=== PATIENT | female | born 1930 | race Caucasian/White ===

== ENCOUNTER → 2017-03-10 | Outpatient (CLI) | payer MEDICARE, OTHER ==
[~2017-03-10] MED LIST: AMI25 PO; AMIT1TAB PO; CYCL10TA29 PO; DON PO; DULO30CA35 PO; ESTR42.5 TOP; FLUOD OP; LEVO88TA42 PO; LOR5/325 PO; NITR-1 PO; ONDA4TAB97 PO; OXYC-865 PO; SUVO5TAB PO; THYROID MEDICATION; TOLT1TAB PO
[2017-03-10 15:22] LABS: PLATELET COUNT, AUTOMATED 235 K/uL (150-450)
== END ==
LOC: LAB 14:46
PROVIDERS: ATTEND Family Medicine
DX: I10 Essential (primary) hypertension (principal); F43.9 Reaction to severe stress, unspecified; R52 Pain, unspecified
CPT/HCPCS: 36415; 82040; 82247; 82310; 82374; 82435; 82565; 82947; 84075; 84132; 84155; 84295; 84450; 84460; 84520; 85025

== ENCOUNTER → 2017-07-20 | Outpatient (CLI) | payer MEDICARE, OTHER ==
[~2017-07-20] MED LIST changes: +ASPI-1471 PO; +IPRA15SP7 NS; +IPRN ENA; +LEVO88TA45 PO
--- NOTE | 2017-07-20 15:35 | RADIOLOGY IMAGING REPORT ---
FACILITY: [facility] - [place] PATIENT NAME: Veronika Paz : 1930 MR: [id number] V: [id number] EXAM DATE: ORDERING PHYSICIAN: ASTER RAIN TECHNOLOGIST: Location: [facility] Patient: Veronika Paz : 1930 Visit/Account:[id number] Date of Sevice: 07/20/2017 CAROTID HISTORY: TIAs, blurry vision COMPARISON: None. FINDINGS: Grayscale, duplex and color Doppler interrogation of the extracranial carotid and vertebral arteries was performed bilateral. On the right, peak systolic velocities within the common and internal carotid arteries are 87 and 113 cm/sec respectively. Small amount of plaque identified in the proximal right ECA. Antegrade flow w ithin the common, internal and external carotid arteries as well as vertebral artery. ICA/CCA ratio 1 .3. On the left, peak systolic velocities within the common and internal carotid arteries are 77 and 131 cm/sec respectively. Small amount of plaque identified the left carotid bulb. Antegrade flow within the common, internal and external carotid arteries as well as vertebral artery. ICA/CCA ratio 2.3. IMPRESSION: A small amount of plaque is identified the left carotid bulb although the peak systolic velocity in l eft ICA is slightly elevated at 131 cm/s in the ICA/ CCA ratio is elevated at 2.26. These findings a re consistent with a 50-69% category stenosis. No hemodynamically significant lesions identified on the right Velocity criteria are extrapolated from diameter data as defined by the Society of Radiologists in Ul trasound Consensus Conference Radiology 2003; 229;340-346 Report Dictated By: Rema Gupta MD at 07/20/2017 3:30 PM Report E-Signed By: Rema Gupta MD at 07/20/2017 3:32 PM WSN:[email or web address]
== END ==
LOC: US 01:18
PROVIDERS: ATTEND Technician/Technologist Ophthalmic
DX: I65.22 Occlusion and stenosis of left carotid artery (principal)
CPT/HCPCS: 93880

== ENCOUNTER → 2017-09-16 | Outpatient (CLI) | payer MEDICARE, OTHER ==
[~2017-09-16] MED LIST changes: +DULO30CA6 PO
[2017-09-16 11:16] LABS: PLATELET COUNT, AUTOMATED 254 K/uL (150-450)
== END ==
LOC: LAB 10:58
PROVIDERS: ATTEND Family Medicine
DX: R10.9 Unspecified abdominal pain (principal); K59.00 Constipation, unspecified; E03.9 Hypothyroidism, unspecified
CPT/HCPCS: 36415; 82040; 82247; 82310; 82374; 82435; 82565; 82947; 84075; 84132; 84155; 84295; 84443; 84450; 84460; 84520; 85025

== ENCOUNTER → 2017-09-23 | Outpatient (CLI) | payer MEDICARE, OTHER ==
[~2017-09-23] MED LIST changes: +LEVO75TA73 PO
--- NOTE | 2017-09-23 14:30 | RADIOLOGY IMAGING REPORT ---
FACILITY: [facility] PATIENT NAME: Veronika Paz : 1930 MR: [id number] V: [id number] EXAM DATE: ORDERING PHYSICIAN: BETH JUNE TECHNOLOGIST: [place] [facility] [place]ika [place] : 1930 Visit/Account:[id number] Date of Sevice: 09/23/2017 KUB SINGLE VIEW ABDOMEN HISTORY: Constipation Additional history: None COMPARISON: 12/13/2013 abdominal radiograph FINDINGS: Despite reported history there is no evidence of colonic fecal retention. Normal. There is a very subtle radiodensity projecting over the right renal shadow raising suspicion for right-sided nephrolithiasis. The right renal shadows relatively small suggesting at least mild atrophy. The left renal shadow is obscured by overlying bowel gas. Multilevel degenerative disc disease is seen through the lumbar spine. IMPRESSION: No evidence of colonic fecal retention. Normal bowel gas pattern. Possible right-sided nephrolithiasis and mild right renal atrophy. Report Dictated By: Bobby Rosario MD at 09/23/2017 2:24 PM Report E-Signed By: Bobby Rosario MD at 09/23/2017 2:27 PM WSN:[id number]
--- NOTE | 2017-09-24 00:39 | RADIOLOGY IMAGING REPORT ---
[place] [facility] [place] NAME: Veronika Paz : 1930 MR: [id number] V: [id number] EXAM DATE: ORDERING PHYSICIAN: BETH JUNE TECHNOLOGIST: Location: [facility] [place] Patient: Veronika Paz : 1930 Visit/Account:[id number] Date of Sevice: 09/23/2017 Ultrasound of the left groin: Indication: Recent onset palpable abnormality in the left groin. Technique: Longitudinal and transverse imaging was performed at the area of interest, before and afte r Valsalva maneuver. Comparison: None. Findings: There is no evidence of mass, lymph node enlargement, or fluid collection. There are no sig ns of hernia. The visualized vascular structures are unremarkable. Impression: Unremarkable study. Report Dictated By: Kimani Gautam MD at 09/24/2017 12:32 AM Report E-Signed By: Kimani Gautam MD at 09/24/2017 12:36 AM WSN:[id number]
== END ==
LOC: US 00:26
PROVIDERS: ATTEND Family Medicine
DX: M51.36 Other intervertebral disc degeneration, lumbar region (principal)
CPT/HCPCS: 74018; 76705

== ENCOUNTER → 2017-09-29 | Outpatient (CLI) | payer MEDICARE, OTHER ==
--- NOTE | 2017-09-29 14:43 | RADIOLOGY IMAGING REPORT ---
FACILITY: [facility] PATIENT NAME: Veronika Paz : 1930 MR: [id number] V: [id number] EXAM DATE: ORDERING PHYSICIAN: BETH JUNE TECHNOLOGIST: Location: [facility] Patient: Veronika Paz : 1930 Visit/Account:[id number] Date of Sevice: 09/29/2017 ABDOMEN/PELVIS W/O CONTRAST HISTORY: Abdomen pain TECHNIQUE: Axial images acquired through the abdomen/pelvis. Coronal and sagittal reformatting also performed. No IV contrast administered. Dose Lowering Technique One of the following dose optimization techniques was utilized in the performance of this exam: Autom ated exposure control; adjustment of the mA and/or kV according to the patient's size; or use of an i terative reconstruction technique. Specific details can be referenced in the facility's radiology C T exam operational policy. COMPARISON: None. FINDINGS: Visualized lung bases: Mild linear stranding the lung bases likely secondary to scarring. There are pleural-based calcifications seen along the inferior left thorax to lesser extent inferior right tho rax Hepatobiliary: There is mild distention of the gallbladder although no evidence of biliary ductal di latation. Spleen: Negative. Adrenals: Negative. Pancreas: There is diffuse fatty replacement of the head the pancreas Kidneys ureters and bladder: There is no demonstration of urolithiasis, hydronephrosis or hydroureter Genitalia: Hysterectomy GI: There is irregularity and stranding in the perirectal fat possibly related to an infectious/infl ammatory process although clinical correlation needed. There is diverticulosis of the sigmoid colon although no CT evidence of acute diverticulitis. There is a loop nonobstructed sigmoid colon located in a large left inguinal hernia . Vessels/spaces/nodes: There are mild vascular calcifications in the abdominal aorta. Collateral ves sels are identified in the left-sided abdomen Bones/soft tissues: As mentioned above there is a large left inguinal hernia containing fat and nono bstructed loop of sigmoid colon. There is also a right-sided inguinal hernia containing fat. There are moderate spondylotic changes of the lumbar spine Additional findings: None pertinent. IMPRESSION: There is a large left internal hernia containing fat and a nonobstructed loop of sigmoid colon. Ther e is also a smaller right-sided inguinal hernia containing fat There is irregularity and stranding in the perirectal fat possibly related to an infectious/inflammat ory process although clinical correlation is needed. Diverticulosis left-sided colon although no CT evidence of acute diverticulitis. Diffuse fatty replacement of the head of the pancreas Mild distention of the gallbladder although no evidence of biliary ductal dilatation. This could be related to a fasting state.. Correlation with meal history suggested Pleural-based calcifications noted along the inferior hemithoraces bilaterally, left greater than rig ht. This raises the question of possible asbestos exposure Report Dictated By: Rema Gupta MD at 09/29/2017 2:25 PM Report E-Signed By: Rema Gupta MD at 09/29/2017 2:39 PM REJI:[email or web address]
== END ==
LOC: CT 06:55
PROVIDERS: ATTEND Family Medicine
DX: K45.8 Other specified abdominal hernia without obstruction or gangrene (principal); K40.90 Unilateral inguinal hernia, without obstruction or gangrene, not specified as recurrent; K57.30 Diverticulosis of large intestine without perforation or abscess without bleeding
CPT/HCPCS: 74176

== ENCOUNTER → 2017-11-02 | Outpatient (CLI) | payer MEDICARE, OTHER | LOC: LAB 13:37 | PROVIDERS: ATTEND Family Medicine | DX: E03.9 Hypothyroidism, unspecified (principal) | CPT/HCPCS: 36415; 84443 ==

== ENCOUNTER → 2017-12-23 | Outpatient (CLI) | payer MEDICARE, OTHER | LOC: LAB 08:56 | PROVIDERS: ATTEND Ophthalmology | DX: H53.8 Other visual disturbances (principal) | CPT/HCPCS: 36415; 85027; 85651; 86140 ==

== ENCOUNTER 2018-03-01 14:52 | Emergency (ER) | payer MEDICARE, OTHER ==
--- NOTE | 2018-03-01 15:29 | RADIOLOGY IMAGING REPORT ---
FACILITY: [facility] PATIENT NAME: Veronika Paz : 1930 MR: [id number] V: [id number] EXAM DATE: ORDERING PHYSICIAN: ROMINA JIMENEZ TECHNOLOGIST: Location: [facility] - [place], [place] Patient: Veronika Paz : 1930 Visit/Account:[id number] Date of Sevice: 03/01/2018 EXAMINATION: Head CT without intravenous contrast HISTORY: Headache. Dysarthria. Stroke alert. COMPARISON: 04/18/2016. TECHNIQUE: Contiguous axial images were obtained from the skull base to the vertex without intraven ous contrast. Sagittal and coronal reformatted images are also submitted. One of the following dose optimization techniques was utilized in the performance of this exam: Autom ated exposure control; adjustment of the mA and/or kV according to the patient's size; or use of an i terative reconstruction technique. Specific details can be referenced in the facility's radiology C T exam operational policy. FINDINGS: Brain and intracranial structures: Mild cerebral volume loss with corresponding sulcal and ventricul ar prominence. The basal cisterns are patent. Mild patchy hypoattenuation in the white matter. No midline shift, acute hemorrhage, mass, or evidence of acute infarct. Vessels: Mild calcified plaque of the carotid siphons. Calvarium / scalp: Negative. Skull base / visualized face: Negative. Visualized sinuses / orbits: Negative. IMPRESSION: No intracranial hemorrhage or evidence of acute infarct. Mild patchy hypoattenuation in the white matter, likely chronic small vessel ischemic changes. These findings were discussed with ROMINA JIMENEZ at 03/01/2018 3:23 PM. Report Dictated By: Jose Bo MD at 03/01/2018 3:19 PM Report E-Signed By: Jose Bo MD at 03/01/2018 3:25 PM WSN:[id number]
--- NOTE | 2018-03-01 15:41 | EKG ---
FACILITY: [facility] - [place] PATIENT NAME: PARAM ROGERS : [id number] MR: [id number] V: [id number] EXAM DATE: ORDERING PHYSICIAN: ROMINA JIMENEZ TECHNOLOGIST: KARIE Resendez Reason : NEURO Blood Pressure : / mmHG Vent. Rate : 077 BPM Atrial Rate : 077 BPM P-R Int : 180 ms QRS Dur : 088 ms QT Int : 380 ms P-R-T Axes : 051 -10 035 degrees QTc Int : 430 ms Sinus rhythm Left axis Poor R wave progression anteriorly Abnormal ECG Similar to previous EKGs Confirmed by STEPHANY MIDDLETON ([id number]) on 03/01/2018 10:16:41 PM Referred By: TONY Confirmed By:STEPHANY MIDDLETON
[2018-03-01 15:57] LABS: PLATELET COUNT, AUTOMATED 236 K/uL (150-450)
[2018-03-01 16:01] LABS: INR 0.97
[2018-03-01] MEDS ORDERED: GADOBENATE 529MG/1ML 15ML VIAL IVP ONE (16:13)
--- NOTE | 2018-03-01 16:50 | ER Report ---
History and Physical Time Seen By MD: 14:58 Hx. of Stated Complaint: POSSIBLE STROKE. LAST NORM WAS ON WEDNESDAY. HPI/ROS CHIEF COMPLAINT: Concerned about possible stroke HISTORY OF PRESENT ILLNESS: This is an 87 year old female. She does not feel right. She says her head does not feel right, but can't explain well. She has had weakness with walking, seeming to list to the side. She normally walks about a mile a day, but cannot even come close to doing this now. She was having difficulty with speech today, having difficulty speaking. She is here with a friend who works as a cook at the [employer] where she lives. Last known normal was last Wednesday, 4 days ago. No recent illness. Denies headache. Denies dizziness. Had difficulty hearing, with hearing aides. Wears glasses, but no acute vision changes. No shortness of breath or chest pain. No palpitations. No abdominal pain, nausea or vomiting. No change in bowels, diarrhea or blood/melena. No dysuria or hematuria. No falls. No trouble swallowing, eating or drinking. Allergies: Coded Allergies: clindamycin (Verified Allergy, Mild, 01/03/15) Home Meds Active Scripts Levothyroxine Sodium (LEVOTHYROXINE SODIUM) 75 Mcg Tablet, 1 TAB PO QDAY for 90 Days, #90 TAB 4 Refills Prov:BETH JUNE MD 11/03/17 Ipratropium [place] 0.03% Ns (IPRATROPIUM BROMIDE 0.03% NS) 21 Mcg [place], 2 SPRAYS DENZEL BID for 30 Days, #1 BOT 11 Refills Prov:TATIANA LEONE JR, MD 04/29/17 Reported Medications Aspirin (ASPIR 81) 81 Mg Tablet.dr, 1 TAB PO twice weekly, TAB 07/21/17 Discontinued Scripts Duloxetine HCl (Duloxetine HCl) 30 Mg Capsule.dr, 1 CAP PO DAILY for 90 Days, #90 CAP 4 Refills Prov:BETH JUNE MD 09/28/17 Estrogens, Conjugated (Premarin) 0.625 Mg/Gram Cream.appl, 1 KALANI TOP rare for 30 Days, #1 TUBE 1 Refill Prov:BETH JUNE MD 09/16/17 Past Medical/Surgical History TIA, Hypothyroidism, IBS, Depression. History of hysterectomy, bladder repair and colonoscopy Reviewed Nurses Notes: Yes Hx Smoking: No Smoking Status: Never Smoker Hx Substance Use Disorder: No Hx Alcohol Use: No Constitutional Vital Sign - Last 24 Hours 03/01/18 03/01/18 03/01/18 03/01/18 15:10 18:15 18:16 18:17 Temp 98.5 Pulse 80 77 81 80 Resp 18 B/P (MAP) 180/91 147/78 (101) 134/77 (96) 110/79 (89) Pulse Ox 93 O2 Delivery Room Air 03/01/18 18:30 Pulse 72 Pulse Ox 92 Physical Exam General Appearance: The patient is alert. No acute distress. Eyes: Pupils are equal, round. Reactive to light. No pallor, injection or icterus. Extraocular movements are intact. No nystagmus. Visual flores equal and full by confrontation. ENT: Mucous membranes are moist. Normal oral mucosa. Posterior oropharynx is normal. Normal nasal mucosa. Normal tympanic membranes and canals. Neck: Supple and non tender. No lymphadenopathy. Respiratory: Lungs are clear to auscultation. Cardiovascular: Regular rate and rhythm. No murmurs, gallops or rubs. Normal capillary refill. No edema. No carotid bruits. Gastrointestinal: Abdomen is soft and non tender. Nondistended. No masses or organomegaly. Normal active bowel sounds. No costovertebral angle tenderness with percussion. Neurological: Alert and oriented x3. Cranial nerve evaluation with eye exam noted above, normal facial motor and sensory function, midline tongue and symmetric palate elevation and shoulder shrug. Has some decreased sensation in the right lower leg, but this is old (several years) otherwise normal. Normal finger to nose and heel to regalado testing. Gait is unsteady, but in a strait line at this time. Skin: Warm and dry. No rashes. Musculoskeletal: Extremities are nontender. No tenderness in palpation of the cervical, thoracic and lumbar spine. DIFFERENTIAL DIAGNOSIS: After history and physical exam, differential diagnosis was considered for neurologic changes that could be stroke, TIA or stroke mimic. NIH stroke scale done by neurology via Telestroke and the nurses was 1 for the sensory disturbance in right leg. Medical Decision Making Data Points Result Diagram: 03/01/18 1536 03/01/18 1536 Laboratory Hematology Test 03/01/18 15:36 03/01/18 17:20 Red Blood Count 5.08 M/uL (4.17-5.56) Mean Corpuscular Volume 97.4 fL (80.0-96.0) Mean Corpuscular Hemoglobin 32.3 pg (26.0-33.0) Mean Corpuscular Hemoglobin Concent 33.1 g/dL (32.0-36.0) Red Cell Distribution Width 12.1 % (11.5-14.5) Mean Platelet Volume 8.0 fL (7.2-11.1) Neutrophils (%) (Auto) 38.4 % (39.4-72.5) Lymphocytes (%) (Auto) 42.3 % (17.6-49.6) Monocytes (%) (Auto) 13.4 % (4.1-12.4) Eosinophils (%) (Auto) 5.2 % (0.4-6.7) Basophils (%) (Auto) 0.7 % (0.3-1.4) Nucleated RBC Relative Count (auto) 0.1 /100WBC Neutrophils # (Auto) 2.5 K/uL (2.0-7.4) Lymphocytes # (Auto) 2.7 K/uL (1.3-3.6) Monocytes # (Auto) 0.9 K/uL (0.3-1.0) Eosinophils # (Auto) 0.3 K/uL (0.0-0.5) Basophils # (Auto) 0.0 K/uL (0.0-0.1) Nucleated RBC Absolute Count (auto) 0.00 K/uL Prothrombin Time 12.8 seconds (12.0-14.4) Prothromb Time International Ratio 0.97 Activated Partial Thromboplast Time 30 seconds (23-35) Sodium Level 139 mmol/L (137-145) Potassium Level 4.3 mmol/L (3.5-5.0) Chloride Level 106 mmol/L (98-107) Carbon Dioxide Level 28 mmol/L (22-31) Blood Urea Nitrogen 20 mg/dl (7-18) Creatinine 1.10 mg/dl (0.52-1.04) Glomerular Filtration Rate Calc 47.0 Random Glucose 94 mg/dl (75-110) Calcium Level 10.3 mg/dl (8.4-10.2) Total Bilirubin 0.4 mg/dl (0.2-1.3) Aspartate Amino Transf (AST/SGOT) 27 U/L (0-35) Alanine Aminotransferase (ALT/SGPT) 23 U/L (0-56) Alkaline Phosphatase 97 U/L (0-126) Troponin I < 0.012 ng/ml Total Protein 8.1 g/dl (6.3-8.2) Albumin 4.4 g/dl (3.5-5.0) Urine Color Yellow Urine Clarity Clear Urine pH 7.0 pH (4.8-9.5) Urine Specific [place] 1.010 Urine Protein Negative mg/dL (NEGATIVE) Urine Glucose (UA) Negative mg/dL (NEGATIVE) Urine Ketones Negative mg/dL (NEGATIVE) Urine Blood Negative (NEGATIVE) Urine Nitrite Negative (NEGATIVE) Urine Bilirubin Negative (NEGATIVE) Urine Urobilinogen Negative mg/dL (0.2-1.9) Urine Leukocyte Esterase Trace (NEGATIVE) Urine RBC None /HPF (0-2/HPF) Urine WBC 5 /HPF (0-5/HPF) Urine Squamous Epithelial Cells Few /LPF (</=FEW) Urine Bacteria Negative /HPF (NONE-FEW) Urine Mucus None /HPF (NONE-FEW) Chemistry Test 03/01/18 15:36 03/01/18 17:20 White Blood Count 6.4 k/uL (4.5-11.0) Red Blood Count 5.08 M/uL (4.17-5.56) Hemoglobin 16.4 g/dL (12.0-16.0) Hematocrit 49.5 % (34.0-47.0) Mean Corpuscular Volume 97.4 fL (80.0-96.0) Mean Corpuscular Hemoglobin 32.3 pg (26.0-33.0) Mean Corpuscular Hemoglobin Concent 33.1 g/dL (32.0-36.0) Red Cell Distribution Width 12.1 % (11.5-14.5) Platelet Count 236 K/uL (150-450) Mean Platelet Volume 8.0 fL (7.2-11.1) Neutrophils (%) (Auto) 38.4 % (39.4-72.5) Lymphocytes (%) (Auto) 42.3 % (17.6-49.6) Monocytes (%) (Auto) 13.4 % (4.1-12.4) Eosinophils (%) (Auto) 5.2 % (0.4-6.7) Basophils (%) (Auto) 0.7 % (0.3-1.4) Nucleated RBC Relative Count (auto) 0.1 /100WBC Neutrophils # (Auto) 2.5 K/uL (2.0-7.4) Lymphocytes # (Auto) 2.7 K/uL (1.3-3.6) Monocytes # (Auto) 0.9 K/uL (0.3-1.0) Eosinophils # (Auto) 0.3 K/uL (0.0-0.5) Basophils # (Auto) 0.0 K/uL (0.0-0.1) Nucleated RBC Absolute Count (auto) 0.00 K/uL Prothrombin Time 12.8 seconds (12.0-14.4) Prothromb Time International Ratio 0.97 Activated Partial Thromboplast Time 30 seconds (23-35) Glomerular Filtration Rate Calc 47.0 Calcium Level 10.3 mg/dl (8.4-10.2) Total Bilirubin 0.4 mg/dl (0.2-1.3) Aspartate Amino Transf (AST/SGOT) 27 U/L (0-35) Alanine Aminotransferase (ALT/SGPT) 23 U/L (0-56) Alkaline Phosphatase 97 U/L (0-126) Troponin I < 0.012 ng/ml Total Protein 8.1 g/dl (6.3-8.2) Albumin 4.4 g/dl (3.5-5.0) Urine Color Yellow Urine Clarity Clear Urine pH 7.0 pH (4.8-9.5) Urine Specific [place] 1.010 Urine Protein Negative mg/dL (NEGATIVE) Urine Glucose (UA) Negative mg/dL (NEGATIVE) Urine Ketones Negative mg/dL (NEGATIVE) Urine Blood Negative (NEGATIVE) Urine Nitrite Negative (NEGATIVE) Urine Bilirubin Negative (NEGATIVE) Urine Urobilinogen Negative mg/dL (0.2-1.9) Urine Leukocyte Esterase Trace (NEGATIVE) Urine RBC None /HPF (0-2/HPF) Urine WBC 5 /HPF (0-5/HPF) Urine Squamous Epithelial Cells Few /LPF (</=FEW) Urine Bacteria Negative /HPF (NONE-FEW) Urine Mucus None /HPF (NONE-FEW) Coagulation Test 03/01/18 15:36 Prothrombin Time 12.8 seconds Prothromb Time International Ratio 0.97 Activated Partial Thromboplast Time 30 seconds Urinalysis Test 03/01/18 17:20 Urine Color Yellow Urine Clarity Clear Urine pH 7.0 pH (4.8-9.5) Urine Specific [place] 1.010 Urine Protein Negative mg/dL (NEGATIVE) Urine Glucose (UA) Negative mg/dL (NEGATIVE) Urine Ketones Negative mg/dL (NEGATIVE) Urine Blood Negative (NEGATIVE) Urine Nitrite Negative (NEGATIVE) Urine Bilirubin Negative (NEGATIVE) Urine Urobilinogen Negative mg/dL (0.2-1.9) Urine Leukocyte Esterase Trace (NEGATIVE) Urine RBC None /HPF (0-2/HPF) Urine WBC 5 /HPF (0-5/HPF) Urine Squamous Epithelial Cells Few /LPF (</=FEW) Urine Bacteria Negative /HPF (NONE-FEW) Urine Mucus None /HPF (NONE-FEW) EKG/Imaging EKG Interpretation 12 lead EKG: Rhythm: normal sinus rhythm, rate 77 [place]: normal QRS: normal ST segments: normal Imaging EXAMINATION: Head CT without intravenous contrast HISTORY: Headache. Dysarthria. Stroke alert. COMPARISON: 04/18/2016. TECHNIQUE: Contiguous axial images were obtained from the skull base to the vertex without intravenous contrast. Sagittal and coronal reformatted images are also submitted. One of the following dose optimization techniques was utilized in the performance of this exam: Automated exposure control; adjustment of the mA and/or kV according to the patient's size; or use of an iterative reconstruction technique. Specific details can be referenced in the facility's radiology CT exam operational policy. FINDINGS: Brain and intracranial structures: Mild cerebral volume loss with corresponding sulcal and ventricular prominence. The basal cisterns are patent. Mild patchy hypoattenuation in the white matter. No midline shift, acute hemorrhage, mass, or evidence of acute infarct. Vessels: Mild calcified plaque of the carotid siphons. Calvarium / scalp: Negative. Skull base / visualized face: Negative. Visualized sinuses / orbits: Negative. IMPRESSION: No intracranial hemorrhage or evidence of acute infarct. Mild patchy hypoattenuation in the white matter, likely chronic small vessel ischemic changes. These findings were discussed with ROMINA JIMENEZ at 03/01/2018 3:23 PM. Report Dictated By: Jose Bo MD at 03/01/2018 3:19 PM ED Course/Re-evaluation Clinical Indication for ER IV: IV Access ED Course Initially sent to CT scan. EKG and labs obtained. Telestroke used for neurology evaluation. Outside of any window for treatment based on last known normal. MRI done with and without contrast for further evaluation. Labs unremarkable other than mild dehydration with BUN 20 and Cr. 1.10, also looks a little hemo- concentrated with elevated H/H. Negative Coagulation and Troponin. Decision to Disposition Date: Mar 01, 2018 Decision to Disposition Time: 18:03 Depart Departure Latest Vital Signs Vital Signs Date Time Temp Pulse Resp B/P (MAP) Pulse Ox O2 Delivery O2 Flow Rate FiO2 03/01/18 18:30 72 92 03/01/18 18:17 110/79 (89) 03/01/18 15:10 98.5 18 Room Air Impression: Primary Impression: Balance problem Additional Impression: Dehydration Condition: Improved Disposition: HOME OR SELF-CARE Referrals: BETH JUNE MD (PCP) Patient Instructions: Dehydration (ED) Additional Instructions: We did not find any evidence of a stroke on your workup today. You will need to keep your appointment with Dr. Dorman, Neurology for further evaluation. Increase your fluid intake. Use your 's previous walker to help prevent falls and keep your stability. Follow-up with Dr. June. Problem Qualifiers ROMINA JIMENEZ MD Mar 01, 2018 16:50
--- NOTE | 2018-03-01 17:37 | RADIOLOGY IMAGING REPORT ---
FACILITY: [facility] [place] PATIENT NAME: Veronika Paz : 1930 MR: [id number] V: [id number] EXAM DATE: ORDERING PHYSICIAN: ROMINA JIMENEZ TECHNOLOGIST: Location: [facility] - [place] Patient: Veronika Paz : 1930 Visit/Account:[id number] Date of Sevice: 03/01/2018 EXAMINATION: MRI Brain without IV contrast MRI Brain with IV contrast HISTORY: Dysarthria. COMPARISON: CT of the head from the same day. TECHNIQUE: Multi-planar, multi-sequence brain MRI was performed before and after IV gadolinium. CONTRAST: 14 mL of IV MultiHance FINDINGS: Brain and other intracranial structures: Mild cerebral volume loss with corresponding sulcal and halima tricular prominence. Mild patchy T2 hyperintense foci in the cerebral white matter. No pathologic enh ancement. No midline shift, mass, hemorrhage, or acute infarct. Calvarium / scalp: Negative. Skull base: Negative. Visualized sinuses / orbits: Negative. IMPRESSION: No acute intracranial abnormality. No acute infarct. Mild patchy T2 hyperintense foci in the white matter, likely chronic small vessel ischemic changes. Report Dictated By: Jose Bo MD at 03/01/2018 5:23 PM Report E-Signed By: Jose Bo MD at 03/01/2018 5:33 PM WSN:[id number]
[2018-03-01] MEDS ORDERED: NS(*) 0.9% 1000 ML BAG 1,000 ML IV ONE (18:00)
[2018-03-01 18:17] VITALS: BP 110/79
== END 2018-03-01 19:46 | disposition home or self-care (01) ==
LOC: ER 15:08
DX: E86.0 Dehydration (principal); R26.81 Unsteadiness on feet
CPT/HCPCS: 70450; 70553; 81001; 84484; 85025; 85610; 85730; 93005; 96360; 99284; A9577; J7030; 82040; 82247; 82310; 82374; 82435; 82565; 82947; 84075; 84132; 84155; 84295; 84450; 84460; 84520

== ENCOUNTER → 2018-05-20 | Outpatient (CLI) | payer MEDICARE, OTHER ==
[~2018-05-20] MED LIST changes: +TRAZ50TA34 PO
--- NOTE | 2018-05-20 15:56 | RADIOLOGY IMAGING REPORT ---
FACILITY: [facility] PATIENT NAME: Veronika Paz : 1930 MR: [id number] V: [id number] EXAM DATE: ORDERING PHYSICIAN: BETH JUNE TECHNOLOGIST: Location: [facility] Patient: Veronika Paz : 1930 Visit/Account:[id number] Date of Sevice: 05/20/2018 CAROTID HISTORY: Syncope COMPARISON: 03/22/2017 FINDINGS: Grayscale, duplex and color Doppler interrogation of the extracranial carotid and vertebral arteries was performed bilateral. On the right, peak systolic velocities within the common and internal carotid arteries are 80 and 138 cm/sec respectively. There is a small amount of plaque at the right carotid bulb and at the origin of the right external carotid artery. Antegrade flow within the common, internal and external caroti d arteries as well as vertebral artery. ICA/CCA ratio 1.8. On the left, peak systolic velocities within the common and internal carotid arteries are 94 and 101 cm/sec respectively. There is a small amount of plaque at the left carotid bulb and proximal left ex ternal carotid artery. Antegrade flow within the common, internal and external carotid arteries as w ell as vertebral artery. ICA/CCA ratio 1.1. IMPRESSION: There is a small amount of plaque in the carotid bulbs and proximal external carotid arteries bilater ally. There is a mildly elevated peak systolic velocity in the right ICA which would be consistent w ith a 50-69% category stenosis No hemodynamically significant lesions identified on the left at this time. Velocity criteria are extrapolated from diameter data as defined by the Society of Radiologists in Ul trasound Consensus Conference Radiology 2003; 229;340-346 Report Dictated By: Rema Gupta MD at 05/20/2018 3:49 PM Report E-Signed By: Rema Gupta MD at 05/20/2018 3:52 PM WSN:[email or web address]
== END ==
LOC: US 05-13 02:18
PROVIDERS: ATTEND Family Medicine
DX: I35.1 Nonrheumatic aortic (valve) insufficiency (principal)
CPT/HCPCS: 93306; 93880

== ENCOUNTER 2018-08-05 17:09 | Observation (INO) | payer MEDICARE, OTHER ==
[~2018-08-05] VITALS: Ht 170.2 cm; Wt 68.0 kg
[~2018-08-05 17:09] MED LIST changes: +QUET25TA30 PO; -TRAZ50TA34 PO; +TRAZ50TA52 PO
[2018-08-05 17:31] VITALS: BP 161/80
[2018-08-05] MEDS ORDERED: NS(*) 0.9% 1000 ML BAG 1,000 ML IV PRN ×2 (17:35→21:59)
[2018-08-05] MEDS ORDERED: ONDANSETRON 4 MG/2 ML VIAL IVP PRN (17:35)
[2018-08-05 18:07] LABS: PLATELET COUNT, AUTOMATED 235 K/uL (150-450)
[2018-08-05] MEDS: MORPHINE 2 MG/ML SYR IVP PRN (18:33)
[2018-08-05] MEDS ORDERED: HYDROmorphone HCL 2 MG/ML SDV IVP ONE (18:55)
[2018-08-05] MEDS ORDERED: NORMOSOL R SOLN(*) 1000 ML BAG 1,000 ML IV ONE (19:02)
[2018-08-05] MEDS ORDERED: FAMOTIDINE(*) 20MG/50ML PREMIX 50 ML IVPB ONE ×2 (19:03→19:10)
[2018-08-05 19:30] VITALS: BP 133/73
--- NOTE | 2018-08-05 19:42 | Gen Surgery History & Physical ---
History of Present Illness Chief Complaint see h&p done in clinic today History Home Meds Active Scripts Levothyroxine Sodium (LEVOTHYROXINE SODIUM) 75 Mcg Tablet, 1 TAB PO QDAY for 90 Days, #90 TAB 4 Refills Prov:BETH JUNE MD 11/03/17 Reported Medications Aspirin (ASPIR 81) 81 Mg Tablet.dr, 1 TAB PO twice weekly, TAB 07/21/17 Allergies: Coded Allergies: clindamycin (Verified Allergy, Mild, 01/03/15) Patient History: Lip cancer MOTHER, , Age:102 Stroke FATHER, , Age:86 TIAs MOTHER, , Age:102 Medical Decision Making Data Points Result Diagram: 08/05/18 1754 08/05/181753 Venous Thromboembolism Antithrombotics Is Pt On Any Antithrombotics?: No ALTON HERNANDEZ Aug 05, 2018 19:42
[2018-08-05] MEDS ORDERED: fentaNYL CITR 250 MCG/5 ML AMP ONE (19:44)
[2018-08-05] MEDS ORDERED: LIDOCAINE 2% IV 100 MG/5ML SYR ONE (19:46)
[2018-08-05] MEDS ORDERED: PROPOFOL EMUL(*) 10MG/ML 20 ML 20 ML ONE (19:49)
[2018-08-05] MEDS ORDERED: ROCURONIUM BR 10 MG/ML 5 ML SY 5 ML ONE (19:50)
[2018-08-05] MEDS ORDERED: ONDANSETRON 4 MG/2 ML VIAL ONE (20:16)
[2018-08-05] MEDS ORDERED: SUGAMMADEX SOD 200 MG/2 ML SDV ONE (20:16)
[2018-08-05] MEDS ORDERED: DEXAMETHASONE SOD 4 MG/ML VIAL ONE (20:16)
[2018-08-05] MEDS ORDERED: ceFAZolin 1 GM VIAL ONE (20:17)
[2018-08-05] MEDS ORDERED: fentaNYL CITR 100 MCG/2 ML AMP ONE (21:14)
--- NOTE | 2018-08-05 22:06 | Post Operative Progress Note ---
Post Operative Progress Note Date: Aug 05, 2018 Time: 21:59 Surgeon: dr. ayla santamaria #[id number] Supervisor Rubber Covering: none Anesthesia: gen, local dr. sandoval Pre-Op Diagnosis: incarcerated left ing hernia, right ing hernia Post-Op Diagnosis: incarcerated left ing hernia Findings: direct and fem left ing hernias Procedure(s): robotic left ing hernia repair with mesh Complications: none Estimated Blood Loss: minimal Date OP Note Dictated: Aug 05, 2018 Time OP Note Dictated: 22:01 ALTON SANTAMARIA Aug 05, 2018 22:06
[2018-08-05] MEDS ORDERED: fentaNYL CITR 100 MCG/2 ML AMP IVP ONE (22:25)
[2018-08-05 23:21] VITALS: BP 120/64
[2018-08-05 23:45] VITALS: BP 116/60
[2018-08-06] VITALS (14 sets, daily range): BP systolic 93–121; BP diastolic 45–64; Ht 170.2 cm; Wt 68.0 kg
[2018-08-06] MEDS: MORPHINE 2 MG/ML SYR IVP PRN ×2 (02:23→06:16)
--- NOTE | 2018-08-06 08:46 | General Surgery Progress Note ---
Subjective Progress Notes Subjective pain improved. marly po. Physical Exam Vital Signs Date Time Temp Pulse Resp B/P (MAP) Pulse Ox O2 Delivery O2 Flow Rate FiO2 08/06/18 07:50 97.9 61 18 106/51 (69) 95 Nasal Cannula 0.5 Intake and Output 08/06/18 07:01 Intake Total 1050 ml Output Total 1160 ml Balance -110 ml Intake IV Total 1050 ml Output Urine Total 1150 ml Estimated Blood Loss 10 ml General Appearance: No Acute Distress Cardiovascular: Other (reg rate) GI: Other (abd soft) Result Diagram: 08/05/18175308/05/181753 Assessment and Plan Problems: (1) S/P inguinal hernia repair Assessment & Plan: doing well pt lives alone and has poor balance so likely one more night in hospital diet as marly ambulate Exam Sepsis Risk: No Definite Risk ALTON HERNANDEZ Aug 06, 2018 08:46
[2018-08-06] MEDS: APAP/HYDROCODONE 325/5 TAB PO PRN ×2 (08:51→21:17)
[2018-08-06] MEDS: ENOXAPARIN 40 MG/0.4ML SYR SC SCH (08:51)
[2018-08-06] MEDS ORDERED: IV BOLUS 500 ML IVSOL IV ONE (15:50)
[2018-08-06] MEDS ORDERED: NS(*) 0.9% 250 ML BAG 250 ML ONE (16:12)
--- NOTE | 2018-08-06 17:44 | OPERATIVE REPORT 1 ---
EVENT DATE: August 05, 2018 SURGEON: Ricardo Bunch MD ANESTHESIOLOGIST: Keenan Humphrey MD ANESTHESIA: General and local. BASKET MAKER: None. PREOPERATIVE DIAGNOSES 1. Incarcerated left inguinal hernia. 2. Right inguinal hernia. POSTOPERATIVE DIAGNOSIS 1. Direct left inguinal hernia. 2. Left femoral hernia. PROCEDURE PERFORMED Robotic left inguinal hernia repair with mesh. FLUIDS IV crystalloid. ESTIMATED BLOOD LOSS Minimal. SPECIMENS None. COMPLICATIONS None. INDICATIONS This is an 88-year-old female with severe pain since this morning. She has an incarcerated left inguinal hernia. Risks and benefits of the procedure were explained, and consent was signed. DESCRIPTION OF PROCEDURE Patient was taken to the operating room and placed in the supine position. General anesthesia was administered per anesthesia team. The left inguinal hernia was reduced at this point. Patient was prepped and draped in normal sterile fashion. Local analgesia was injected in the dermis above the umbilicus. A small incision was made. The umbilical stump was grasped and elevated. I attempted to insert a Veress needle and was unsuccessful; therefore, I made a small incision after injecting local analgesia below the left costal margin and used Optiview technique to easily enter the abdomen. Pneumoperitoneum was achieved. After injecting local analgesia and under direct vision, a right upper quadrant port was placed as well as a supraumbilical port. I inspected the abdomen. There was no injury upon entry. There was no significant hernia on the right. There was a direct inguinal hernia on the left. It appeared that omentum was what was incarcerated. The 10 x 15 cm left- sided ProGrip mesh was placed as well as an absorbable V-Loc stitch. The robot was then docked. Scissors were used to create a peritoneal flap. The direct left inguinal hernia was completely reduced. There was also a small femoral defect, and this was completely reduced as well. Small amount of cursory fat that was removed from the hernia was removed the abdomen. A mesh was placed and made to lie flat. A 3-0 Vicryl stitch was used to secure the mesh to Osman ligament. An absorbable V-Loc stitch was then used to close the peritoneal flap. Hemostasis was assured. Robot was undocked. Ports were removed. Hemostasis was assured. Final port was removed after pneumoperitoneum was relieved. All skin incisions were closed with 4-0 Monocryl subcuticular stitches. More local analgesia was injected. Appropriate dressings were applied. Patient tolerated the procedure well. There were no complications. SABINO
[2018-08-07] VITALS (8 sets, daily range): BP systolic 104–138; BP diastolic 48–77
[2018-08-07] MEDS: LEVOTHYROXINE SOD 0.075 MG TAB PO SCH (06:25)
[2018-08-07] MEDS ORDERED: TRAM-420 PO (08:00)
--- NOTE | 2018-08-07 08:00 | General Surgery Progress Note ---
Subjective Progress Notes Subjective still sore but much improved compared to prior to surgery. difficulty getting into bed. Physical Exam Vital Signs Date Time Temp Pulse Resp B/P (MAP) Pulse Ox O2 Delivery O2 Flow Rate FiO2 08/07/18 06:27 98.3 17 121/60 (80) 96 Nasal Cannula 1.5 08/07/18 01:39 65 Intake and Output 08/07/18 07:02 Intake Total 2274 ml Output Total 345 ml Balance 1929 ml Intake Oral 1380 ml IV Total 894 ml Output Urine Total 345 ml # Voids 4 General Appearance: No Acute Distress GI: Other (abd soft) Result Diagram: 08/05/18 1754 08/05/181753 Assessment and Plan Problems: (1) S/P inguinal hernia repair Assessment & Plan: 08/06/18: doing well pt lives alone and has poor balance so likely one more night in hospital diet as marly ambulate 08/07/18: doing fine. difficulty getting into bed. will have pt eval tomorrow, then home tomorrow. Exam Sepsis Risk: No Definite Risk ALTON HERNANDEZ Aug 07, 2018 08:00
[2018-08-07] MEDS: DOCUSATE SODIUM 100 MG CAP PO SCH ×2 (09:30→20:45)
[2018-08-07] MEDS: ENOXAPARIN 40 MG/0.4ML SYR SC SCH (09:30)
[2018-08-07] MEDS: APAP/HYDROCODONE 325/5 TAB PO PRN (20:45)
[2018-08-08 05:39] VITALS: BP 139/56
[2018-08-08] MEDS: LEVOTHYROXINE SOD 0.075 MG TAB PO SCH (05:50)
[2018-08-08] MEDS: APAP/HYDROCODONE 325/5 TAB PO PRN (05:50)
[2018-08-08 07:30] VITALS: BP 118/59
--- NOTE | 2018-08-08 09:01 | General Surgery Progress Note ---
Subjective Progress Notes Subjective no complaints. Up in chair without difficulty. Physical Exam Vital Signs Date Time Temp Pulse Resp B/P (MAP) Pulse Ox O2 Delivery O2 Flow Rate FiO2 08/08/18 07:30 98.2 52 20 118/59 (78) 95 Nasal Cannula 1.0 Intake and Output 08/08/18 07:02 Intake Total 1080 ml Balance 1080 ml Intake Oral 1080 ml # Voids 8 General Appearance: Alert, Awake, No Acute Distress, Afebrile Neuro: No Gross deficits Cardiovascular: Normal Rhythm & Peripheral Pulses Respiratory: No Respiratory Distress, Clear to Auscultation GI: Soft and Non-Tender, Other (trocar incision sites clean.) Integumentary: Skin Intact without Lesion / Mass Psych: Alert & Oriented X3, Appropriate Mood & Affect Result Diagram: 08/05/18175308/05/181753 Assessment and Plan Problems: (1) S/P inguinal hernia repair Assessment & Plan: 08/06/18: doing well pt lives alone and has poor balance so likely one more night in hospital diet as marly ambulate 08/07/18: doing fine. difficulty getting into bed. will have pt eval tomorrow, then home tomorrow. 08/08/18: stable post op progress. Anticipate DC with home health today. Time Spent: > 30 min Exam Sepsis Risk: No Definite Risk GREG ADKINS MD Aug 08, 2018 09:01
[2018-08-08] MEDS: DOCUSATE SODIUM 100 MG CAP PO SCH (09:29)
[2018-08-08] MEDS: ENOXAPARIN 40 MG/0.4ML SYR SC SCH (09:30)
--- NOTE | 2018-08-08 11:20 | Hospitalist Depart ---
Discharge Summary Reason for Hosp/Final Diag: (1) S/P inguinal hernia repair Hospital Course & Plan: 08/06/18: doing well pt lives alone and has poor balance so likely one more night in hospital diet as marly ambulate 08/07/18: doing fine. difficulty getting into bed. will have pt eval tomorrow, then home tomorrow. 08/08/18: stable post op progress. Anticipate DC with home health today. Departure Weight (Pounds): 150 Result Diagram: 08/05/18175308/05/181753 Condition: Improved Discharge: Home, Home Health PT/OT Follow Up For: PT For Strengthening, OT For ADL's, PT Evaluation and Treat, OT Evaluation and Treat Home Health RN Follow Up For: Nursing Assessment Home Health METER REPAIRER HELPER Follow Up For: ADL Assistance Discharge Instructions Home Meds Active Scripts Tramadol Hcl (TRAMADOL HCL) 50 Mg Tablet, 50 MG PO Q4H PRN for PAIN, #20 TAB Prov:ALTON HERNANDEZ 08/07/18 Levothyroxine Sodium (LEVOTHYROXINE SODIUM) 75 Mcg Tablet, 1 TAB PO QDAY for 90 Days, #90 TAB 4 Refills Prov:BETH JUNE MD 11/03/17 Reported Medications Aspirin (ASPIR 81) 81 Mg Tablet.dr, 1 TAB PO twice weekly, TAB 07/21/17 Diet: Regular Activity: As Tolerated, No Heavy Lifting Venous Thromboembolism VTE Risk Physician Assess for VTE Risk: Yes Patient's VTE Risk: Low VTE Diagnostic Test 2 Days Prior to Admit: No Antithrombotics Is Pt On Any Antithrombotics?: No [id number] Certification Face to Face Medical Necessity: Nursing, Rehab Date Face to Face Conducted: Aug 08, 2018 GREG ADKINS MD Aug 08, 2018 11:20
--- NOTE | 2018-08-08 15:24 | NUR ---
Physical Therapy Impression PT eval complete. Please see treatment note for remainder of PT eval (error in documentation location). Physical Therapy Goals Patient's Goals
--- NOTE | 2018-08-08 15:24 | NUR ---
This Physical Therapist or Microfilming Document Preparer was present for the entire physical therapy session directing the services, making the skilled judgement, and was not engaged in treating another patient or doing another task at the same time as the treatment session. Addendum: 08/08/18 at 1524 by TRAN MILLS PT Amended: Links added.
[2018-08-09] MEDS ORDERED: ACET-2146 PO (16:40)
[2018-08-09] MEDS ORDERED: DOCU100C49 PO (16:40)
== END 2018-08-08 11:41 | disposition home health service (06) ==
LOC: MED 17:09 → INTOOBSV 17:09
PROVIDERS: ADMIT Surgery; ATTEND Surgery
DX: K40.30 Unilateral inguinal hernia, with obstruction, without gangrene, not specified as recurrent (principal); K40.90 Unilateral inguinal hernia, without obstruction or gangrene, not specified as recurrent
CPT/HCPCS: 36415; 49650; 83605; 85025; 96372; 97161; 97165; 97535; A9270; C1758; C1781; G0378; G0379; J0690; J1100; J1170; J1650; J2001; J2270; J2405; J2704; J3010; J3490; J7030; J7050; S2900; 82310; 82374; 82435; 82565; 82947; 84132; 84295; 84520